=== PATIENT | female | born 1945 | race Caucasian/White ===

== ENCOUNTER 2023-05-02 13:05 | Outpatient (CLI) | payer MEDICARE, OTHER, SELFPAY ==
--- NOTE | ~2023-05-02 | XR_ITS ---
AP and oblique views of the SI joints CLINICAL HISTORY: Psoriatic arthritis FINDINGS: SI joints appear unremarkable. No erosive or sclerotic, or degenerative change evident. Abida rostimulator device present. Bilateral hip joints are intact. Probable advanced degenerative disc rosalba rowing at the lower lumbar spine noted. Soft tissues are otherwise unremarkable. IMPRESSION: No significant abnormality of the SI joints. Reviewed, dictated and finalized at location .
--- NOTE | ~2023-05-02 | XR_ITS ---
Bilateral Hands Technique: Bilateral PA, oblique, and lateral views, and ball-catcher's view were obtained. Clinical History: Psoriatic arthritis Findings: No acute fracture or dislocation is seen. There is severe arthritis at the right third and fourth PIP joints, with marked joint space narrowing, osteophyte formation, and some probable mild os teitis. There is moderate to advanced osteoarthritic change of the right fifth DIP joint and right se cond DIP joint. There is severe arthritic change at the left third, fourth, and fifth PIP joints, with bony productiv e change, osteitis, and marked joint space narrowing. There is moderate osteoarthrosis of the left fi fth DIP joint. There is probable moderate osteoporosis of the left first metacarpophalangeal joint. There is prominent soft tissue swelling of the left second, third, and fourth digits.. Impression: Severe probable psoriatic arthritis involving the left second, third, and fourth PIP joints, and the right third and fourth PIP joints. Probable more mild involvement in the left fifth PIP joint. Questi onable involvement of the left first MCP joint. Osteophytic change at the right second and fifth DIP joints, and left fifth DIP joint. Reviewed, dictated and finalized at location . Impression: Severe probable psoriatic arthritis involving the left second, third, and fourt h PIP joints, and the right third and fourth PIP joints. Probable more mild inv olvement in the left fifth PIP joint. Questionable involvement of the left firs t MCP joint. Osteophytic change at the right second and fifth DIP joints, and left fifth DIP joint.
--- NOTE | ~2023-05-02 | XR_ITS ---
Left foot Technique: AP and lateral standing views were obtained. Clinical History: Psoriatic arthritis Findings: No acute fracture or dislocation is seen. There is severe joint space narrowing at the firs t metatarsophalangeal joint, with extensive bony productive change, joint space narrowing, and somewh at developing pencil in cup deformity. Remaining joint spaces are well-preserved. Soft tissues are un remarkable. Impression: Severe arthritic change of the first MTP joint, as detailed above, which could reflect psoriatic arth ritis versus severe osteoarthritis. Reviewed, dictated and finalized at location M. Impression: Severe arthritic change of the first MTP joint, as detailed above, which could reflect psoriatic arthritis versus severe osteoarthritis.
--- NOTE | ~2023-05-02 | XR_ITS ---
Right foot Technique: AP and lateral standing views were obtained. Clinical History: Psoriatic arthritis Findings: No acute fracture or dislocation is seen. Probable pes planus. Joint spaces are preserved. Probable prior first metatarsal osteotomy/bunionectomy.. Soft tissues are unremarkable. Impression: Probable pes planus. Suspected prior first metatarsal osteotomy and bunionectomy. Correlate with any relevant surgical his tory. Reviewed, dictated and finalized at location . Impression: Probable pes planus. Suspected prior first metatarsal osteotomy and bunionectomy. Correlate with any relevant surgical history.
--- NOTE | ~2023-05-02 | XR_ITS ---
Lumbosacral Spine: AP and lateral views Clinical History: Pain Findings: There is 26 degrees of dextroscoliosis of the lumbar spine. There is severe degenerative di sc narrowing throughout the lumbar spine. Suspected grade 1 anterolisthesis of L4 over L5. There is s evere facet arthropathy throughout the lumbar spine. The intervertebral disc spaces are preserved. Ne urostimulator device present. The sacroiliac joints are normally outlined. Impression: Severe degenerative spondylosis with probable grade 1 anterolisthesis of L4 over L5, and 26 degrees o f dextroscoliosis. Neurostimulator device present. Reviewed, dictated and finalized at location M. Impression: Severe degenerative spondylosis with probable grade 1 anterolisthesis of L4 ove r L5, and 26 degrees of dextroscoliosis. Neurostimulator device present.
[2023-05-02 14:02] LABS: Hematocrit 37.2 % (37.0-47.0); Hemoglobin 12.1 g/dL (12.0-15.0); Mean Corpuscular HGB Conc 32.5 g/dl (32-36); Mean Corpuscular Volume 95.4 fl (80-100); Mean Platelet Volume 10.7 fl (7.4-10.4); Platelet Count Result 264 k/mm3 (150-375); Red Cell Distribution Width 15.2 % (11.5-14.5); White Blood Count 4.5 K/mm3 (4.5-10.0)
[2023-05-02 14:19] LABS: Rheumatoid Factor < 12.0 IU/ML (<12)
[2023-05-02 14:22] LABS: Alanine Aminotransferase 26 U/L (6-35); Albumin Level 4.3 g/dL (3.5-5.1); Alkaline Phosphatase 120 U/L (38-126); Anion Gap 5 mmol/L (8-16); Aspartate Amino Transferase 30 U/L (14-36); Bilirubin,Total 0.4 mg/dL (0.2-1.3); Blood Urea Nitrogen 12 mg/dL (7-17); CRP 0.6 mg/dL (<1.0); Carbon Dioxide 32 mmol/L (22-30); Chloride 92 mmol/L (98-107); Estimated Glomerular Filt Rate > 60; Glucose 94 mg/dL (65-110); Potassium 3.7 mmol/L (3.4-5.0); Sodium 129 mmol/L (137-145)
[2023-05-02 14:56] LABS: Hepatitis B Surface Antigen Negative (Negative)
[2023-05-02 15:16] LABS: Hepatitis B Surface Anti Res Positive; Hepatitis C Virus Antibody Negative (Negative)
[2023-05-02 16:53] LABS: Erythrocyte Sedimentation Rate 19 mm/hr (0-20)
[2023-05-04 12:23] LABS: NIL 0.03 IU/mL; Quantiferon TB Plus, 1T NEGATIVE (NEGATIVE)
[2023-05-08 13:01] LABS: Anti Cyclic Citrullinated Pept <16 Units (<20)
== END 2023-05-02 13:06 | disposition home or self-care (01) ==
PROVIDERS: PCP Internal Medicine; Visit Provider Internal Medicine
DX: M47.816 Spondylosis without myelopathy or radiculopathy, lumbar region (principal); M19.072 Primary osteoarthritis, left ankle and foot; M25.742 Osteophyte, left hand; M25.741 Osteophyte, right hand; R89.9 Unspecified abnormal finding in specimens from other organs, systems and tissues; L40.50 Arthropathic psoriasis, unspecified; Z96.82 Presence of neurostimulator
CPT/HCPCS: 36415; 72110; 72202; 73130; 73620; 80053; 85027; 85652; 86140; 86200; 86430; 86480; 86706; 86803; 87340